=== PATIENT | female | born 1980 | race Caucasian/White ===

== ENCOUNTER 2016-12-05 08:40 | Emergency (ER) | payer BC ==
[2016-12-05] MEDS ORDERED: 0.9 % SODIUM CHLORIDE 1,000 ML BAG IV ONE (08:52)
--- NOTE | 2016-12-05 09:00 | Emergency Department Record ---
History of Present Illness - General Chief complaint: Flank Pain Stated complaint: RIGHT FLANK PAIN Time Seen by Provider: 12/05/16 08:52 Source: Patient Mode of Arrival: Ambulatory Limitations: No limitations - History of Present Illness Initial comments: 36 yo female presents with left sided pain. The pain started over a month ago. It comes and goes. The pain is over the left flank and radiates to the left LLQ area. No fevers. No nausea or vomiting. Today she notes some red discoloration of the stools. No history of GI bleed. No diarrhea. She does have discomfort with urination as well. No rash. MD Complaint: Dysuria, Other (Left Flank Pain) Location: Suprapubic Radiation: L flank Severity: Moderate Quality: Aching Consistency: Intermittent Improves with: None Worsens with: None Associated Symptoms: Abdominal pain, Dysuria - Related Data Home Medications Medication Instructions Recorded Confirmed Last Taken Hydrocodone/Acetaminophen [[place] 1 each PO Q12HR PRN 02/09/14 12/05/16 12/04/16 7.5-325 Tablet] Allergies Allergy/AdvReac Type Severity Reaction Status Date / Time sulfamethoxazole Allergy SWELLING Verified 01/11/15 23:33 [From Bactrim] (GENERAL) trimethoprim [From Bactrim] Allergy SWELLING Verified 01/11/15 23:33 (GENERAL) Review of Systems Constitutional: Denies: Chills, Fever, Malaise, Weakness Eyes: Denies: Eye discharge ENT: Denies: Congestion, Throat pain Respiratory: Denies: Cough, Dyspnea, Hemoptysis, Stridor Cardiovascular: Denies: Chest pain, Palpitations, Syncope Endocrine: Denies: Fatigue Gastrointestinal: Reports: Abdominal pain, Other (Reddish stool today). Denies : Constipation, Diarrhea, Nausea, Vomiting Genitourinary: Denies: Dysuria, Urgency Musculoskeletal: Denies: Arthralgia, Back pain, Myalgia Skin: Denies: Bruising, Change in color, Rash Neurological: Denies: Confusion, Headache, Numbness, Weakness Psychiatric: Denies: Anxiety Hematological/Lymphatic: Denies: Blood Clots, Easy bleeding, Easy bruising, Swollen glands Past Medical History - SOCIAL HISTORY Smoking Status: Current every day smoker - RESPIRATORY Hx Respiratory Disorders: No - CARDIOVASCULAR Hx Cardio Disorders: No - NEURO Hx Neuro Disorders: No - GI Hx GI Disorders: No - Hx Genitourinary Disorders: Yes Hx Kidney Stones: Yes - ENDOCRINE Hx Endocrine Disorders: No - MUSCULOSKELETAL Hx Musculoskeletal Disorders: Yes Hx Back Injury: Yes (CHRONIC) - PSYCH Hx Psych Problems: Yes Hx Anxiety: Yes Hx Depression: Yes - HEMATOLOGY/ONCOLOGY Hx Hematology/Oncology Disorders: No Family Medical History Hx Diabetes: Father, Grandparents Physical Exam - General General Appearance: Alert, Oriented x3, Cooperative, No acute distress Limitations: No limitations - Head Head exam: Atraumatic, Normal inspection - Eye Eye exam: Normal appearance, PERRL. negative: Conjunctival injection, Periorbital swelling - ENT ENT exam: Normal exam, Mucous membranes moist Ear exam: Normal external inspection Nasal Exam: Normal inspection Mouth exam: Normal external inspection Teeth exam: Normal inspection - Neck Neck exam: Normal inspection, Full ROM. negative: Lymphadenopathy, Tenderness - Respiratory Respiratory exam: Normal lung sounds bilaterally. negative: Respiratory distress, Rhonchi, Stridor, Wheezes - Cardiovascular Cardiovascular Exam: Regular rate, Normal rhythm, Normal heart sounds - GI/Abdominal GI/Abdominal exam: Soft, Tenderness (mild left flank, left suprapubic, LLQ) - Rectal Rectal exam: Heme (-) stool, Normal inspection, Normal rectal tone, Other (The control was positive with a negative result for occult blood). negative: Hemorrhoids, Mass, Tenderness - exam: Deferred - Extremities Extremities exam: Normal inspection, Full ROM, Normal capillary refill. negative: Tenderness - Back Back exam: Reports: Normal inspection, CVA tenderness (L), Full ROM. Denies: Muscle spasm, Rash noted, Tenderness - Neurological Neurological exam: Alert, Normal gait, Oriented X3 - Psychiatric Psychiatric exam: Normal affect, Normal mood - Skin Skin exam: Dry, Intact, Normal color, Warm Course - Reevaluation(s) Reevaluation #1: The WBC count on the CBC was 17.5. No other acute changes. The US was negative with a negative HCG 12/05/16 09:25 Reevaluation #2: The stool was HEME NEGATIVE The CMP and Lipase were negative 12/05/16 09:56 Reevaluation #3: The CT scan of the abdomen and pelvis was negative for any acute process. The patient was informed. 12/05/16 10:16 Medical Decision Making - Lab Data Result diagrams: 12/05/16 09:12/05/16 09:10 Disposition Disposition: Discharge Clinical Impression: Flank pain, acute Disposition: Home, Self-Care Condition: (1) Good Instructions: Flank Pain (ED) Additional Instructions: Follow up with your doctor first of the week as scheduled Return in the next 24 hours to recheck your white blood cell count and your abdominal examination Return sooner if fever, uncontrolled pain, vomiting or any more red discoloration of the stools Forms: Patient Portal Access Time of Disposition: 10:20
[2016-12-05 09:16] LABS: BASO % 0.3 % (0-6); EOS % 1.7 % (0-6); GRAN % 75.9 % (47-80); HEMOGLOBIN 15.2 gm/dl (11.6-16.0); LYMPH % 16.5 % (16-45); MEAN CELL VOLUME 91.8 fl (81-97); MEAN CORPUSCULAR HEMOGLOBIN 30.3 pg (27-33); MEAN PLATELET VOLUME 9.6 fl (7.4-10.4); MONO % 5.6 % (0-9); PLATELET COUNT 361 K/uL (130-400); RED BLOOD COUNT 5.01 M/uL (3.80-5.40); RED CELL DISTRIBUTION WIDTH 13.9 % (11.5-14.5); URINE APPEARANCE CLEAR; URINE BILIRUBIN NEGATIVE (NEGATIVE); URINE BLOOD NEGATIVE (NEGATIVE); URINE COLOR YELLOW; URINE GLUCOSE (UA) NEGATIVE (NEGATIVE); URINE KETONE NEGATIVE (NEGATIVE); URINE LEUKOCYTE ESTERASE NEGATIVE (NEGATIVE); URINE NITRITE NEGATIVE (NEGATIVE); URINE PROTEIN NEGATIVE (NEGATIVE); URINE UROBILINOGEN 0.2 E.U./dL (0.20 - 1.00); WHITE BLOOD COUNT W/O DIFF 17.5 K/uL (4.2-12.2)
[2016-12-05 09:29] LABS: ALB/GLOB RATIO 1.6 (1.1-1.8); ALBUMIN 4.4 gm/dL (3.5-5.0); ALKALINE PHOSPHATASE 80 U/L (38-126); ALT/SGPT 20 U/L (9-52); ANION GAP 9.9 (7-16); AST/SGOT 21 U/L (14-36); BILIRUBIN,TOTAL 0.47 mg/dL (0.2-1.3); BLOOD UREA NITROGEN 12 mg/dL (7-17); CARBON DIOXIDE 22.1 mmol/L (22-30); CREATININE 0.6 mg/dL (0.52-1.04); EST GLOMERULAR FILTRATION RATE > 60 ml/min; GLUCOSE,RANDOM 125 mg/dL (70-110); LIPASE 56 U/L (23-300); TOTAL PROTEIN 7.2 gm/dL (6.3-8.2)
== END 2016-12-05 10:42 | disposition home or self-care (01) ==
LOC: ER 08:40
DX: R10.32 Left lower quadrant pain (principal); R30.0 Dysuria
CPT/HCPCS: 74176; 80053; 81003; 81025; 83690; 85025; 99284; J7030